=== PATIENT | male | born 1995 | race Caucasian/White ===

== ENCOUNTER 2016-08-16 10:49 | Emergency (ER) | payer BC ==
[2016-08-16 11:47] LABS: HEMOGLOBIN 15.9 gm/dl (14.0-17.5); RED BLOOD COUNT 5.06 M/UL (4.20-5.50); WHITE BLOOD COUNT 6.9 K/UL (4.5-11.0)
[2016-08-16 12:13] LABS: BUN/CREATININE RATIO 11 (0-10)
== END 2016-08-16 14:10 | disposition home or self-care (01) ==
LOC: ER1 10:49
PROVIDERS: Physician Assistant
DX: R07.89 Other chest pain (principal); K21.9 Gastro-esophageal reflux disease without esophagitis
CPT/HCPCS: 36415; 71010; 80053; 82150; 82550; 82553; 83690; 83874; 84484; 85025; 85379; 93005; 96374; 99285; J1885